=== PATIENT | female | born 1965 | race Caucasian/White ===

== ENCOUNTER 2017-09-28 16:40 | Observation (INO) | payer OTHER ==
[~2017-09-28] VITALS: Ht 162.6 cm; Wt 78.9 kg
[~2017-09-28 16:40] MED LIST: METFORMIN; SAXAGLIPTIN; Z LABETALOL HCL; Z.0.ACIPHEX20 MG; Z.0.AMARYL2 MG; Z.0.AMLODIPINE BESYL PO; Z.0.EFFEXOR XR150 MG; Z.1.MECLIZINE HCL25; Z.2.METFORMIN HCL500 PO
[2017-09-28] MEDS ORDERED: FENOFIBRATE145 MG PO (17:01)
[2017-09-28] MEDS ORDERED: CRESTOR10 MG PO (17:01)
[2017-09-28] MEDS ORDERED: LISINOPRIL10 MG PO (17:01)
[2017-09-28] MEDS ORDERED: CYMBALTA30 MG PO (17:01)
[2017-09-28] MEDS ORDERED: ABILIFY5 MG PO (17:01)
[2017-09-28] MEDS ORDERED: TRULICITY SQ (17:01)
[2017-09-28] MEDS ORDERED: BUPROPION XL300 MG PO (17:01)
[2017-09-28 18:40] LABS: BASOPHILS % 0.5 % (0.0-1.0); EOSINOPHILS # (AUTO) 0.1 (0.0-0.4); EOSINOPHILS % 0.9 % (0.0-6.0); HEMATOCRIT 41.3 % (34.2-44.1); HEMOGLOBIN 13.8 g/dL (12.0-16.0); LYMPHOCYTES # (AUTO) 1.6 (1.0-3.2); LYMPHOCYTES % 19.9 % (18.0-39.1); MEAN CORPUSCULAR HEMOGLOBIN 26.8 pg (28-32); MEAN CORPUSCULAR HGB CONC 33.4 g/dL (31-35); MEAN CORPUSCULAR VOLUME 80.2 fL (81-99); MONOCYTES # (AUTO) 0.4 (0.2-0.8); MONOCYTES % 5.2 % (4.4-11.3); NEUTROPHILS # (AUTO) 5.9 (2.1-6.9); NEUTROPHILS % 73.3 % (38.7-80.0); PLATELET COUNT 322 x10e3/uL (140-360); RED BLOOD COUNT 5.15 x10e6/uL (3.6-5.1); RED CELL DISTRIBUTION WIDTH 13.1 % (11.7-14.4)
[2017-09-28 18:52] LABS: ALANINE AMINOTRANSFERASE 13 IU/L (0-55); ALBUMIN 3.7 g/dL (3.5-5.0); ALBUMIN/GLOBULIN RATIO 1.1 (0.8-2.0); ALKALINE PHOSPHATASE 45 IU/L (40-150); ANION GAP 11.5 mmol/L (8-16); BLOOD UREA NITROGEN 18 mg/dL (7-26); BUN/CREATININE RATIO 24 (6-25); CARBON DIOXIDE 25 mmol/L (22-29); CHLORIDE 108 mmol/L (98-107); CREATINE KINASE 63 IU/L (29-168); CREATININE, SERUM 0.76 mg/dL (0.57-1.11); EST GLOMERULAR FILTRATION RATE > 60 ML/MIN (60-); GLUCOSE 112 mg/dL (74-118); POTASSIUM 3.5 mmol/L (3.5-5.1); SODIUM 141 mmol/L (136-145)
--- NOTE | 2017-09-28 19:41 | Diagnostic Imaging Report ---
Exam: Head CT without contrast History: Dizziness, hypertension Comparison studies: Head CT 09/26/2010. Brain MRI of 09/27/2010 is unavailable on the PACS at the time of dictation. Technique: Axial images were obtained from the skull base to the vertex. Coronal and sagittal images reconstructed from the axial data. Intravenous contrast: None Findings: Scalp: No abnormalities. Bones: No fractures, blastic or lytic lesions. Brain sulci: Appropriate for age. Ventricles: Normal in size and configuration. No hydrocephalus. Extra-axial spaces: No masses, no fluid collection. Parenchyma: No mass, acute hemorrhage or acute or chronic cortical vascular insults. A few subtle hypodensities in the supratentorial white matter are nonspecific but most compatible with chronic small vessel ischemic changes. Sellar/suprasellar region: No abnormalities. Craniocervical junction: Patent foramen magnum. No Chiari one malformation. Incidental findings: Atherosclerotic calcifications in the carotid siphons.. IMPRESSION: 1. No acute intracranial abnormalities. 2. Mild chronic microvascular ischemic changes. 3. No significant changes from the previous head CT of 09/26/2010. Signed by: Dr. Farhan Mcdermott M.D. on 09/28/2017 7:37 PM
[2017-09-28] MEDS ORDERED: SODIUM CHLORIDE 0.9% 1000ML 1,000 ML IV STA (19:44)
[2017-09-28] MEDS ORDERED: KETOROLAC TROMETHAMINE 30 MG/ML VIAL IV ONE (19:44)
[2017-09-28] MEDS ORDERED: MECLIZINE HCL 12.5 MG TAB PO ONE (19:45)
[2017-09-28] MEDS ORDERED: BENZOCAINE/TETRACAINE/BUTAMBEN AERO SPRAY 56 GM CAN TOP ONE (20:30)
[2017-09-28] MEDS ORDERED: MECLIZINE HCL 12.5 MG TAB PO PRN (21:00)
[2017-09-28] MEDS ORDERED: ONDANSETRON HCL 4 MG ORAL DISINTEGRATING TAB PO PRN (21:00)
[2017-09-28] MEDS ORDERED: DEXTROSE 50% SYRINGE 50 ML IV PRN (21:00)
[2017-09-28] MEDS ORDERED: ACETAMINOPHEN 325 MG TAB PO PRN (21:00)
[2017-09-28] MEDS ORDERED: ASPIRIN 325 MG TAB EC PO ONE (21:00)
--- OUTSIDE RECORDS SUMMARY | 2017-09-28 21:01 | XMS REPORT ---
Author Author [facility] Address Unknown Phone Unavailable Care Team Providers Care Branch Rental Manager Name Role Phone DENI RUDD Unavailable Unavailable Problems This patient has no known problems. Allergies, Adverse Reactions, Alerts This patient has no known allergies or adverse reactions. Medications This patient has no known medications. Results Test Description Test Time Test Comments Text Results Atomic Results Result Comments CT BRAIN WO [place] [address] Patient Name: MARLEE MENENDEZ MR #: [id number] : 1965 Age/Sex: 52/F Req # : [id number] Adm Physician: Ordered by: DENI RUDD MD Report #: [id number] Location: ER Room/Bed: Procedure: [id number] CT/CT BRAIN WO Exam Date: Exam Time: REPORT STATUS: Signed Exam: Head CT without contrast History: Dizziness, hypertension Comparison studies: Head CT 09/26/2010. Brain MRI of 09/27/2010 is unavailable on the PACS at the time of dictation. Technique: Axial images were obtained from the skull base to the vertex. Coronal and sagittal images reconstructed from the axial data. Intravenous contrast: None Findings: Scalp: No abnormalities. Bones: No fractures, blastic or lytic lesions. Brain sulci: Appropriate for age. Ventricles: Normal in size and configuration. No hydrocephalus. Extra-axial spaces: No masses, no fluid collection. Parenchyma: No mass, acute hemorrhage or acute or chronic cortical vascular insults. A few subtle hypodensities in the supratentorial white matter are nonspecific but most compatible with chronic small vessel ischemic changes. Sellar/suprasellar region: No abnormalities. Craniocervical junction: Patent foramen magnum. No Chiari one malformation. Incidental findings: Atherosclerotic calcifications in the carotid siphons.. IMPRESSION: 1. No acute intracranial abnormalities. 2. Mild chronic microvascular ischemic changes. 3. No significant changes from the previous head CT of 09/26/2010. Signed by: Dr. Alex Mcdermott M.D. on 09/28 7:37 PM Dictated By: ALEX MCDERMOTT MD 36 Transcribed By: MILDRED on 09/28/171936 COPY TO: DENI RUDD MD
[2017-09-28] MEDS: INSULIN REGULAR, HUMAN 100 UNIT/1 ML 3ML VIAL SQ SCH (21:17)
[2017-09-28 23:19] LABS: INR 1.05; PARTIAL THROMBOPLASTIN TIME 28.6 seconds (23.8-35.5); PROTHROMBIN TIME 12.9 seconds (11.9-14.5)
[2017-09-28 23:29] VITALS: BP 142/76
[2017-09-28 23:53] VITALS: BP 142/76
[2017-09-29] VITALS (10 sets, daily range): BP systolic 118–142; BP diastolic 67–88
[2017-09-29 06:18] LABS: BASOPHILS % 0.3 % (0.0-1.0); EOSINOPHILS # (AUTO) 0.1 (0.0-0.4); EOSINOPHILS % 1.6 % (0.0-6.0); HEMATOCRIT 38.6 % (34.2-44.1); HEMOGLOBIN 12.8 g/dL (12.0-16.0); LYMPHOCYTES # (AUTO) 2.6 (1.0-3.2); LYMPHOCYTES % 35.9 % (18.0-39.1); MEAN CORPUSCULAR HEMOGLOBIN 26.5 pg (28-32); MEAN CORPUSCULAR HGB CONC 33.2 g/dL (31-35); MEAN CORPUSCULAR VOLUME 79.9 fL (81-99); MONOCYTES # (AUTO) 0.5 (0.2-0.8); NEUTROPHILS % 54.9 % (38.7-80.0); PLATELET COUNT 269 x10e3/uL (140-360); RED BLOOD COUNT 4.83 x10e6/uL (3.6-5.1); RED CELL DISTRIBUTION WIDTH 13.2 % (11.7-14.4)
[2017-09-29 06:36] LABS: CREATINE KINASE 58 IU/L (29-168)
[2017-09-29 07:04] LABS: ALANINE AMINOTRANSFERASE 11 IU/L (0-55); ALBUMIN 3.2 g/dL (3.5-5.0); ALBUMIN/GLOBULIN RATIO 1.1 (0.8-2.0); ALKALINE PHOSPHATASE 40 IU/L (40-150); ANION GAP 10.4 mmol/L (8-16); BLOOD UREA NITROGEN 13 mg/dL (7-26); BUN/CREATININE RATIO 16 (6-25); CALCIUM 8.8 mg/dL (8.4-10.2); CARBON DIOXIDE 27 mmol/L (22-29); CHLORIDE 108 mmol/L (98-107); CHOL/HDL RATIO 3.1 (3.0-3.6); CHOLESTEROL 152 MD/DL (0-199); CREATININE, SERUM 0.79 mg/dL (0.57-1.11); EST GLOMERULAR FILTRATION RATE > 60 ML/MIN (60-); GLUCOSE 82 mg/dL (74-118); HDL CHOLESTEROL 49 MG/DL (40-60); LDL CHOLESTEROL 79 MG/DL (60-130); POTASSIUM 3.4 mmol/L (3.5-5.1); SODIUM 142 mmol/L (136-145); TRIGLYCERIDES 120 MG/DL (0-149)
[2017-09-29] MEDS: INSULIN REGULAR, HUMAN 100 UNIT/1 ML 3ML VIAL SQ SCH ×4 (07:30→21:00)
[2017-09-29] MEDS: ASPIRIN 81 MG ENTERIC COATED PO SCH (08:48)
--- NOTE | 2017-09-29 12:29 | Diagnostic Imaging Report ---
PROCEDURE:HIP LEFT 2-3 VW (+/- PELVIS) COMPARISON:None. INDICATIONS:LEFT HIP PAIN FINDINGS: Normal mineralization. No acute displaced fracture or dislocation. Mild degenerative changes of both hips with mild subchondral sclerosis and osteophytosis. Soft tissues are unremarkable. CONCLUSION: No acute osseous abnormalities. Dictated by: Thang Stevens M.D. on 09/29/2017 at 12:30 Electronically approved by: Thang Stevens M.D. on 09/29/2017 at 12:30
[2017-09-29] MEDS: MORPHINE SULFATE 2 MG/ML SYR IV PRN ×2 (13:13→18:28)
[2017-09-29] MEDS ORDERED: PROMETHAZINE 12.5MG/ NACL 0.9% 12.5 MG/50 ML BAG IV ONE (15:15)
[2017-09-29] MEDS ORDERED: METHYLPREDNISOLONE SOD SUCC 125 MG/2ML VIAL IV ONE (15:15)
[2017-09-29] MEDS ORDERED: VALPROATE SOD INJ 500 MG in SODIUM CHLORIDE 0.9% 100 ML 100 ML IV ONE (15:15)
[2017-09-29 16:10] LABS: CREATINE KINASE 46 IU/L (29-168)
--- NOTE | 2017-09-29 17:16 | Consultation ---
NEUROLOGY CONSULTATION DATE OF CONSULTATION: September 29, 2017 HISTORY OF PRESENT ILLNESS: Ms. De La Fuente is a 52-year-old right hand dominant woman with past medical history significant for hypertension, hyperlipidemia, diabetes mellitus type 2, and prior transient ischemic attack admitted to [facility] on September 28, 2017 with headache and dizziness. Ms. De La Fuente endorses dizziness which she describes as a mixture of lightheadedness and spinning. The dizziness occurs with bending forward at the waist, lying down in bed, and sitting up from a supine position. The dizziness does not occur with turning her head or her body either left or right. When present, the dizziness lasts for a few seconds, then spontaneously resolves. There is no blurred vision associated with the dizziness. Ms. De La Fuente does endorse some nausea without vomiting associated with the dizziness. Ms. De La Fuente reports the dizziness improves with "being very still." The dizziness has been present for approximately 2 months. Ms. De La Fuente reports the intensity of the symptoms is stable, but the frequency is increasing. The patient does have a history of intermittent vertigo, with the most recent bout occurring approximately 1 year ago. In the past, Ms. De La Fuente has been treated with oral meclizine. She has never received vestibular exercises through physical therapy. Ms. De La Fuente endorses a headache which she describes as follows: The pain is unilateral over the right side of the head and does not radiate. The pain is described as pressure and is rated a 5-6/10. Associated with the headaches are: Photophobia. Ms. De La Fuente does not report phonophobia. She is uncertain if the dizziness and associated symptoms occur with or without the headaches. The headaches have occurred intermittently for the past 2 months. When present, the headaches last for several hours. Ms. De La Fuente reports the headaches are occurring multiple days per week. The patient does have a prior history of migraines. In the past, her migraines have occurred sporadically. Her most recent migraine occurred 1 year ago. Ms. De La Fuente has been prescribed medication to treat her migraines in the past. However, she cannot recall the name of this medication. As stated above, Ms. De La Fuente presented to the emergency center at [facility] on September 28, 2017 on the advice of her primary care physician, Dr. Barker. While in the emergency center, the patient's neurological examination was reportedly nonfocal. Ms. De La Fuente underwent a CT of the brain without contrast while in the emergency center. There was no evidence of recent large territorial ischemia or hemorrhage on the CT of the brain without contrast. Ms. De La Fuente was admitted to [facility] as an inpatient for further evaluation and treatment of her symptoms. REVIEW OF SYSTEMS: Nausea, left hip pain, mid back pain, dizziness, headache, and photophobia. Otherwise the 12 point review of systems is negative. PAST MEDICAL HISTORY: Hypertension, hyperlipidemia, diabetes mellitus type 2, depression, prior history of migraines, prior transient ischemic attack, kidney cancer, currently in remission, polycystic ovarian syndrome. PAST SURGICAL HISTORY: Gastric sleeve, right partial nephrectomy, cholecystectomy, removal of bone spurs on the right foot, D and C. PAST HOSPITALIZATIONS: Surgeries and procedures listed, chest pain, transient ischemic attack. FAMILY HISTORY: Hypertension, diabetes mellitus, coronary artery disease, and depression. SOCIAL HISTORY: Ms. De La Fuente is a . She is engaged to be . The patient graduated high school. She works as a chemical handler. Ms. De La Fuente does endorse tobacco use. She has smoked approximately one pack per day for the past 35 years. The patient does not report current or prior alcohol or recreational drug use. HOME MEDICATIONS: Amlodipine 10 mg by mouth daily, Abilify 10 mg by mouth daily, bupropion XL 300 mg by mouth daily, Cymbalta 60 mg by mouth daily, fenofibrate 135 mg by mouth daily, lisinopril 40 mg by mouth daily, metformin 500 mg by mouth twice daily, Crestor 5 mg by mouth daily, Trulicity. ALLERGIES: No known drug allergies. No known food allergies. No known allergies to latex. No known allergies to iodine or other contrast materials. PHYSICAL EXAMINATION VITAL SIGNS: Height 64 inches, weight 174 pounds, BMI 29.9 kg per meter squared. Blood pressure 127/70 mmHg, pulse 98 beats per minute, respiratory rate 16 breaths per minute. GENERAL: The patient is awake and alert, does not appear distressed. Overweight. HEENT: Normocephalic, atraumatic. Pupils are equal, round and reactive to light. Moist mucous membranes. NECK: Supple. No appreciable thyromegaly. No appreciable carotid bruits. CARDIOVASCULAR: S1, S2, regular rate and rhythm. No murmurs, rubs or gallops. RESPIRATORY: Clear to auscultation bilaterally. No wheezes, rhonchi, or rales. EXTREMITIES: The skin is warm and dry. No clubbing, cyanosis, or edema. The posterior tibial and dorsalis pedis pulses are 2+ and symmetric. SKIN: No rashes or lesions. NEUROLOGIC: Memory/Attention: The patient is awake and alert, oriented to person, place, time and situation. CRANIAL NERVES: Cranial nerve 1-not tested. Cranial nerve 2, 3, 4, and 6--pupils are equal and round, react briskly to light (from 6 mm to 3 mm), extraocular movements intact. No nystagmus. Cranial nerve 5-sensation to light touch and pinprick is intact in the bilateral V1 through V3 distributions. Strength of the temporalis and mastoid muscles is within normal limits. Cranial nerve 7-the face is symmetric as are all facial movements. Strength is within normal limits. Cranial nerve 8-hearing is intact to finger rub bilaterally. Cranial nerve 9, 10-the soft palate elevates equally and symmetrically. Cranial nerve 11-normal strength of the bilateral sternocleidomastoid and trapezius muscles. Cranial nerve 12-the tongue protrudes midline and moves symmetrically from side to side. STRENGTH: Bulk is normal and strength is 5/5 in the bilateral deltoids, biceps triceps, wrist flexors and extensors, finger flexors and extensors, intrinsic hand muscles, hip flexors, knee flexors and extensors, ankle dorsiflexion and plantarflexion, and intrinsic foot muscles. Tone is normal. DTRs: Deep tendon reflexes are 2+ and symmetric at the triceps, biceps, brachioradialis, patellas, and Achilles. Plantar responses are flexor bilaterally. Absent clonus. SENSATION: Sensation is intact to light touch and pinprick in both arms and both legs. CEREBELLAR: Yenzef-ctks-zchoby and heel-latif movements are intact without dysmetria or other impairment. rapid alternating movements are intact. GAIT: Deferred. SPEECH: Spontaneous speech is normal without appreciable dysarthria or aphasia. repetition is intact. INVOLUNTARY MOVEMENTS: None. PRONATOR DRIFT: None. LABORATORY DATA: Sodium 142, potassium 3.4, chloride 108, carbon dioxide 27, anion gap 10.4, BUN 13, creatinine 0.79. Estimated GFR greater than 60. BUN to creatinine ratio 16. Glucose 82. Calcium 8.8. Total bilirubin 0.3, AST 13, ALT 11, alkaline phosphatase 40. Total protein 6.1, albumin 3.2, globulin 2.9. Albumin to globulin ratio 1.1. Creatine kinase 63, 58. CK-MB 1.40, 1.30. Troponin I less than 0.001. Total cholesterol 152, triglycerides 120, LDL 79, HDL 49. The CBC with differential and platelets reveals a white blood cell count of 7.32 with normal differential. The hemoglobin and hematocrit are 12.8 and 38.6, respectively. The platelet count is 269. PT 12.9, INR 1.05, PTT 28.6. DIAGNOSTIC STUDIES: EKG 09/28/2017: Normal sinus rhythm at [address] of the brain without contrast 09/28/2017: On my review, there is no evidence of recent or remote large territorial ischemia, hemorrhage, mass, or mass affect. There are changes compatible with mild chronic small vessel ischemic disease. According to the note from the radiologist, there has been no significant change from the patient's previous CT of the brain dated September 26, 2010. Hip x-ray 09/29/2017: No acute osseous abnormalities. ASSESSMENT AND PLAN: Ms. De La Fuente is a 52-year-old right hand dominant woman with past medical history significant for hypertension, hyperlipidemia, diabetes mellitus type 2, a prior transient ischemic attack, and tobacco use presenting to [facility] with a 2-month history of headache and dizziness. The patient's neurological examination is nonfocal. Her laboratory data and other diagnostic studies have been reviewed and are documented above. The diagnosis which best explains all of the patient's symptoms is migraine without aura with status migrainosus. Other possible diagnoses which would account for all of the patient's symptoms are migraine without aura and benign paroxysmal positional vertigo. A diagnosis of posterior circulation stroke is possible, though less likely. According to Ms. De La Fuente, the dizziness described in the history of present illness came on gradually approximately 2 months ago. When present, the dizziness is very brief, lasting only a few seconds at a time. The dizziness is exacerbated by moving forwards or backwards. These characteristics are atypical of a posterior circulation stroke. On neurological examination, there is no appreciable truncal or appendicular ataxia which would be expected in a posterior circulation stroke. RECOMMENDATIONS: Are as follows 1. MRI of the brain without contrast. This study is being ordered due to patient's presentation with new or worsening headache after the age of 51 years. This study will reveal a posterior circulation stroke, if present, as well. 2. Promethazine 12.5 mg intravenously once. 3. Methylprednisolone 125 mg intravenously once. 4. Valproate 500 mg intravenously once. 5. The above medications, when given in combination, are an effective treatment for status migrainosus. The above medications may be given again in 6 hours if needed. If Ms. De La Fuente's symptoms are due to migraine without aura with status migrainosus, as is suspected, her symptoms should significantly improve or resolve with the above medications. 6. Defer treatment of the remaining medical comorbidities to the primary and other services. Thank you for this consultation. I will continue to follow this patient while she remains in the hospital. Time spent: 50 minutes. Job#: [id number] JERED MCCONNELL
[2017-09-29] MEDS: METFORMIN HCL 500 MG TAB PO SCH (17:24)
[2017-09-29] MEDS ORDERED: HYDROCODONE/APAP 5MG-325MG TAB PO PRN (18:45)
[2017-09-29] MEDS ORDERED: SIMVASTATIN 40 MG TAB PO SCH (21:00)
[2017-09-29] MEDS: SIMVASTATIN 20 MG TAB PO SCH (21:11)
[2017-09-29] MEDS ORDERED: SODIUM CHLORIDE 0.9% 250ML 250 ML ONE (21:22)
[2017-09-29] MEDS ORDERED: VALPROATE SOD INJ 500 MG in SODIUM CHLORIDE 0.9% 100 ML 100 ML IV PRN (22:00)
[2017-09-30] VITALS (8 sets, daily range): BP systolic 119–165; BP diastolic 64–84
[2017-09-30] MEDS: INSULIN REGULAR, HUMAN 100 UNIT/1 ML 3ML VIAL SQ SCH ×4 (07:30→21:00)
[2017-09-30] MEDS ORDERED: LISINOPRIL 10 MG TAB PO SCH (09:00)
[2017-09-30] MEDS ORDERED: NON-FORMULARY MEDICATION (Bupropion Hcl (Bupropion Xl) 300 MG) PO SCH (09:00)
[2017-09-30] MEDS ORDERED: AMLODIPINE BESYLATE 5 MG TAB PO SCH (09:00)
[2017-09-30] MEDS ORDERED: NON-FORMULARY MEDICATION (Aripiprazole (Abilify) 10 MG) PO SCH (09:00)
[2017-09-30] MEDS: METFORMIN HCL 500 MG TAB PO SCH ×2 (09:57→16:26)
[2017-09-30] MEDS: ARIPIPRAZOLE 5 MG TABLET PO SCH (09:57)
[2017-09-30] MEDS: DULOXETINE HCL 30 MG DELAYED RELEASE PO SCH (09:57)
[2017-09-30] MEDS: ASPIRIN 81 MG ENTERIC COATED PO SCH (09:57)
[2017-09-30] MEDS: BUPROPION HCL 150 MG TABCR PO SCH (09:58)
[2017-09-30] MEDS: AMLODIPINE BESYLATE 10 MG TAB PO SCH (09:58)
[2017-09-30] MEDS: LISINOPRIL 20 MG TAB PO SCH (09:58)
[2017-09-30] MEDS: FENOFIBRATE 145 MG TAB PO SCH (09:58)
[2017-09-30] MEDS ORDERED: KETOROLAC TROMETHAMINE 30 MG/ML VIAL IV ONE (12:45)
[2017-09-30] MEDS ORDERED: POTASSIUM CHLORIDE 10 MEQ TABCR PO ONE (13:00)
--- NOTE | 2017-09-30 13:17 | Diagnostic Imaging Report ---
History: 52-year-old female with headaches Comparison studies: None Technique: Sagittal T2; axial DWI, FLAIR, MPGR, T1, Coronal FLAIR. Intravenous contrast: None Findings: Scalp: Normal in signal . No masses . Bone marrow: Normal in signal intensity. Brain sulci: Appropriate for age. Ventricles: Normal in size . No hydrocephalus . Parenchyma: A small number of scattered bilateral supratentorial FLAIR hyperintensities are present. No masses, hemorrhage, acute or chronic vascular insults. Suprasellar region: No abnormalities. Craniocervical junction: Patent foramen magnum. No Chiari malformation . Vessels: Normal flow-voids in the arteries and sinuses. IMPRESSION: 1. No intracranial mass, hemorrhage, or acute infarct. 2. Mild nonspecific FLAIR hyperintensities in the supratentorial white matter, which may represent chronic small vessel ischemic changes. Signed by: DR Jack Bejarano M.D. on 09/30/2017 4:29 PM
[2017-09-30] MEDS ORDERED: DIHYDROERGOTAMINE MESYLATE 1 MG/ML AMP IV ONE (14:00)
[2017-09-30] MEDS: SIMVASTATIN 20 MG TAB PO SCH (20:31)
[2017-10-01] VITALS: BP 122/67
[2017-10-01 04:00] VITALS: BP 130/72
[2017-10-01] MEDS: INSULIN REGULAR, HUMAN 100 UNIT/1 ML 3ML VIAL SQ SCH (07:30)
[2017-10-01] MEDS: FENOFIBRATE 145 MG TAB PO SCH (08:14)
[2017-10-01] MEDS: LISINOPRIL 20 MG TAB PO SCH (08:14)
[2017-10-01] MEDS: ARIPIPRAZOLE 5 MG TABLET PO SCH (08:14)
[2017-10-01] MEDS: AMLODIPINE BESYLATE 10 MG TAB PO SCH (08:14)
[2017-10-01] MEDS: DULOXETINE HCL 30 MG DELAYED RELEASE PO SCH (08:14)
[2017-10-01] MEDS: ASPIRIN 81 MG ENTERIC COATED PO SCH (08:14)
[2017-10-01] MEDS: METFORMIN HCL 500 MG TAB PO SCH (08:14)
[2017-10-01] MEDS: BUPROPION HCL 150 MG TABCR PO SCH (08:14)
[2017-10-01 08:21] VITALS: BP 155/85
[2017-10-01 08:35] VITALS: BP 155/85
[2017-10-01] MEDS ORDERED: MECLIZINE HCL12.5 MG PO (11:31)
== END 2017-10-01 11:52 | disposition home or self-care (01) ==
LOC: ER 16:40 → ERHOLD 20:59 → MED/SURG 22:49
DX: G43.001 Migraine without aura, not intractable, with status migrainosus (principal); R53.1 Weakness; H81.10 Benign paroxysmal vertigo, unspecified ear; E78.5 Hyperlipidemia, unspecified; Z86.73 Personal history of transient ischemic attack (TIA), and cerebral infarction without residual deficits; I10 Essential (primary) hypertension; Z72.0 Tobacco use
CPT/HCPCS: 36415 ×4; 70450; 70551; 73502; 80053 ×2; 80061; 82550 ×2; 82553 ×2; 82948 ×4; 84484 ×2; 85025 ×2; 85610; 85730; 93005; 99284; G0378 ×4; J1110; J1885 ×2; J2270; J2550; J2930; J7030; J7050

== ENCOUNTER 2017-10-18 14:15 | Emergency (ER) | payer OTHER ==
[~2017-10-18] VITALS: Ht 162.6 cm; Wt 78.9 kg
[~2017-10-18 14:15] MED LIST changes: +ABILIFY5 MG PO; +BUPROPION XL300 MG PO; +CRESTOR10 MG PO; +CYMBALTA30 MG PO; +FENOFIBRATE145 MG PO; +LISINOPRIL10 MG PO; +MECLIZINE HCL12.5 MG PO; +TRULICITY SQ
--- OUTSIDE RECORDS SUMMARY | 2017-10-18 14:19 | XMS REPORT | Continuity of Care Document ---
Author Author [facility] Organization [facility] Address [address] [place] [address] Phone Unavailable Care Team Providers Care Tree Chipper Name Role Phone LAUREEN MAYERS DO PCP Insurance Providers Guarantor Marlee De La Fuente Address [address] [place] [address] Email PT DECLINED Payer [employer] Pos Policy Number [id number] Subscriber's Name Marlee De La Fuente Relationship 18 Self / Same As Patient Group Number [id number] Group Name [employer] Effective Date 09 Advance Directives Directive Response Recorded Date/Time Does the patient have an advance directive? No 09/28/17 11:57pm If yes, is advance directive on file with [facility]? No 09/26/10 6:30pm If not on file with [facility] will patient provide a copy? No 09/26/10 6:30pm Do you have a Directive to Physician? No 09/28/17 7:06pm Do you have a Medical Power of Vice President Of Sales? No 09/28/17 7:06pm Do you have an out of hospital Do Not Resuscitate Order? No 09/28/17 7:06pm Do you have any special needs we should be aware of? No 09/28/17 7:06pm Do you have a support person here with you today? Yes 09/28/17 7:06pm Did patient receive Notice of Privacy Practices? Yes 09/28/17 7:06pm Did patient receive patient rights and responsibilities? Yes 09/28/17 7:06pm Problems Medical Problem Onset Date Status Dizziness Unknown Headache Unknown Medications Current Home Medications Medication Dose Units Route Directions Days Qty Instructions Start Date Amlodipine Besylate 5 Mg Tablet 10 Mg Oral Daily Aripiprazole (Abilify) 5 Mg Tablet 10 Mg Oral Daily 30 Tab Bupropion Hcl (Bupropion Xl) 300 Mg Tab.er.24h 300 Mg Oral Daily Duloxetine Hcl (Cymbalta) 30 Mg Capsule.dr 60 Mg Oral Daily 30 Cap Fenofibrate Nanocrystallized (Fenofibrate) 145 Mg Tablet 135 Mg Oral Daily Lisinopril 10 Mg Tablet 40 Mg Oral Daily 30 Tab Meclizine Hcl 12.5 Mg Tablet 25 Mg Oral Daily Metformin Hcl 500 Mg Tablet 500 Mg Oral Twice A Day Rosuvastatin Calcium (Crestor) 10 Mg Tab 5 Mg Oral Daily THERAPEUTICALLY SUBSTITUTED WITH SIMVASTATIN 40MG Trulicity Sub-Q Weekly Past Home Medications Medication Directions Ordered Status Glimepiride (Amaryl) 2 Mg Tablet, Discontinued Labetalol Hcl 300 Mg Tablet, Discontinued Meclizine Hcl 25 Mg Tablet, Discontinued Rabeprazole Sodium (Aciphex) 20 Mg Tablet.dr, Discontinued Saxagliptin Hcl/Metformin Hcl (Kombiglyze Xr 5-500 Mg Tablet) 1 Each Tbmp.24hr , Discontinued Venlafaxine Hcl (Effexor Xr) 150 Mg Cap.sr.24h, Discontinued Social History Social History Problem Response Recorded Date/Time Onset Date Status Hx Psychiatric Problems Yes 09/28/2017 11:57pm Not Applicable Not Applicable Hx Eating Disorder No 09/28/2017 11:57pm Not Applicable Not Applicable Hx Substance Use Disorder No 09/28/2017 11:57pm Not Applicable Not Applicable Hx Depression Yes 09/28/2017 11:57pm Not Applicable Not Applicable Hx Alcohol Use No 09/28/2017 11:57pm Not Applicable Not Applicable Hx Substance Use Treatment No 09/28/2017 11:57pm Not Applicable Not Applicable Hx Physical Abuse No 09/28/2017 11:57pm Not Applicable Not Applicable Smoking Status Start Date Stop Date Current every day smoker Hospital Discharge Instructions No hospital discharge instruction information available. Plan of Care Discharge Date 10/01/17 11:52am Disposition HOME, SELF-CARE Instructions/Education Provided Dizziness Headache Hypertension Headache - Migraine (Adult) Vertigo Prescriptions See Medication Section Referrals MADIHA GROVER M.D. (Neurology) Order Date: 1-2 Weeks Entered Date: 10/01/2017 11:29am Address: [address] [place] [address] [address] [place] [address] CELL# Additional Instructions/Education ACTIVITY TOLERATED F/U WITH PCP IN 1-2 WEEKS MONITOR BLOOD PRESSURE TAKE MECLIZINE PRESCRIBED FOR DIZZINESS. DO NOT DRIVE WHEN DIZZY OR ON MECLIZINE. CAN MAKE DROWSY Functional Status Query Response Date Recorded Assistive Devices None September 29, 2017 12:01am Ambulation Ability Independent September 29, 2017 12:01am Toileting Ability Independent September 30, 2017 6:13pm Allergies, Adverse Reactions, Alerts No known allergies. Immunizations No immunization information available. Vital Signs Acute Vital Signs Vital Response Date/Time Temperature (Fahrenheit) 97.4 degrees F (97.6 - 99.5) 10/01/2017 8:35am Pulse Pulse Rate (adult) 70 bpm (60 - 90) 10/01/2017 8:35am Respiratory Rate 18 bpm (12 - 24) 10/01/2017 8:35am Blood Pressure 155/85 mm Hg 10/01/2017 8:35am Height 5 ft 4 in 09/28/2017 11:30pm Weight 174 lb 09/29/2017 8:16am Body Mass Index 29.9 kg/m^2 09/29/2017 8:16am Results Laboratory Results Test Name Result Units Flags Reference Collection Date/Time Result Date/ Time Comments White Blood Count 7.32 x10e3/uL 4.8-10.8 09/29/2017 6:00am 09/29/2017 6 :24am Red Blood Count 4.83 x10e6/uL 3.6-5.1 09/29/2017 6:00am 09/29/2017 6: 24am Hemoglobin 12.8 g/dL 12.0-16.0 09/29/2017 6:00am 09/29/2017 6:24am Hematocrit 38.6 % 34.2-44.1 09/29/2017 6:00am 09/29/2017 6:24am Mean Corpuscular Volume 79.9 fL L 81-99 09/29/2017 6:00am 09/29/2017 6: 24am Mean Corpuscular Hemoglobin 26.5 pg L 28-32 09/29/2017 6:00am 2017 6:24am Mean Corpuscular Hemoglobin Concent 33.2 g/dL 31-35 09/29/2017 6:00am 09/29/2017 6:24am Red Cell Distribution Width 13.2 % 11.7-14.4 09/29/2017 6:00am 2017 6:24am Platelet Count 269 x10e3/uL 140-360 09/29/2017 6:00am 09/29/2017 6: 24am Neutrophils (%) (Auto) 54.9 % 38.7-80.0 09/29/2017 6:00am 09/29/2017 6: 24am Lymphocytes (%) (Auto) 35.9 % 18.0-39.1 09/29/2017 6:00am 09/29/2017 6: 24am Monocytes (%) (Auto) 7.0 % 4.4-11.3 09/29/2017 6:00am 09/29/2017 6: 24am Eosinophils (%) (Auto) 1.6 % 0.0-6.0 09/29/2017 6:00am 09/29/2017 6: 24am Basophils (%) (Auto) 0.3 % 0.0-1.0 09/29/2017 6:00am 09/29/2017 6:24am IM GRANULOCYTES % 0.3 % 0.0-1.0 09/29/2017 6:00am 09/29/2017 6:24am Neutrophils # (Auto) 4.0 2.1-6.9 09/29/2017 6:00am 09/29/2017 6:24am Lymphocytes # (Auto) 2.6 1.0-3.2 09/29/2017 6:00am 09/29/2017 6:24am Monocytes # (Auto) 0.5 0.2-0.8 09/29/2017 6:00am 09/29/2017 6:24am Eosinophils # (Auto) 0.1 0.0-0.4 09/29/2017 6:00am 09/29/2017 6:24am Basophils # (Auto) 0.0 0.0-0.1 09/29/2017 6:00am 09/29/2017 6:24am Absolute Immature Granulocyte (auto 0.02 x10e3/uL 0-0.1 09/29/2017 6: 00am 09/29/2017 6:24am Prothrombin Time 12.9 seconds 11.9-14.5 09/28/2017 5:18pm 09/28/2017 11 :21pm Prothromb Time International Ratio 1.05 09/28/2017 5:18pm 2017 11:21pm Oral Anticoagulant Therapy INR Values: 1. Low Intensity Therapy 1.5 - 2.0 2. Moderate Intensity Therapy 2.0 - 3.0 3. High Intensity Therapy(1) 2.5 - 3.5 4. High Intensity Therapy(2) 3.0 - 4.0 5. Panic Value INR > 5.0 Activated Partial Thromboplast Time 28.6 seconds 23.8-35.5 09/28/2017 5: 18pm 09/28/2017 11:21pm Sodium Level 142 mmol/L 136-145 09/29/2017 6:00am 09/29/2017 7:09am Potassium Level 3.4 mmol/L L 3.5-5.1 09/29/2017 6:00am 09/29/2017 7: 09am Chloride Level 108 mmol/L H 98-107 09/29/2017 6:00am 09/29/2017 7:09am Carbon Dioxide Level 27 mmol/L 22-29 09/29/2017 6:00am 09/29/2017 7: 09am Anion Gap 10.4 mmol/L 8-16 09/29/2017 6:00am 09/29/2017 7:09am Blood Urea Nitrogen 13 mg/dL 7-09/29/2017 6:00am 09/29/2017 7:09am Creatinine 0.79 mg/dL 0.57-1.11 09/29/2017 6:00am 09/29/2017 7:09am BUN/Creatinine Ratio 16 6-09/29/2017 6:00am 09/29/2017 7:09am Estimat Glomerular Filtration Rate > 60 ML/MIN 60- 09/29/2017 6:00am 7:09am Ranges were taken from the National Kidney Disease Education Program and the National Kidney Foundation literature. Reference ranges: 60 or greater: Normal 16-59 (for 3 consecutive months): Chronic kidney disease 15 or less: Kidney failure Glucose Level 82 mg/dL 74-118 09/29/2017 6:00am 09/29/2017 7:09am Calcium Level 8.8 mg/dL 8.4-10.2 09/29/2017 6:00am 09/29/2017 7:09am Bedside Glucose 97 mg/dL 70-120 10/01/2017 7:42am 10/01/2017 8:22am Meter ID: [id number] Total Bilirubin 0.3 mg/dL 0.2-1.2 09/29/2017 6:00am 09/29/2017 7:09am Aspartate Amino Transf (AST/SGOT) 13 IU/L 5-34 09/29/2017 6:00am 2017 7:09am Alanine Aminotransferase (ALT/SGPT) 11 IU/L 0-55 09/29/2017 6:00am 08/2017 7:09am Total Protein 6.1 g/dL L 6.5-8.1 09/29/2017 6:00am 09/29/2017 7:09am Albumin 3.2 g/dL L 3.5-5.0 09/29/2017 6:00am 09/29/2017 7:09am Globulin 2.9 g/dL 2.3-3.5 09/29/2017 6:00am 09/29/2017 7:09am Albumin/Globulin Ratio 1.1 0.8-2.0 09/29/2017 6:00am 09/29/2017 7: 09am Alkaline Phosphatase 40 IU/L 40-150 09/29/2017 6:00am 09/29/2017 7: 09am Triglycerides Level 120 MG/DL 0-149 09/29/2017 6:00am 09/29/2017 7: 09am Cholesterol Level 152 MD/DL 0-199 09/29/2017 6:00am 09/29/2017 7:09am Less than 200 mg/dL Low Risk 201 - 239 mg/dL Borderline Risk 240 mg/dl and greater High Risk LDL Cholesterol 79 MG/DL 60-130 09/29/2017 6:00am 09/29/2017 7:09am HDL Cholesterol 49 MG/DL 40-60 09/29/2017 6:00am 09/29/2017 7:09am Cholesterol/HDL Ratio 3.1 3.0-3.6 09/29/2017 6:00am 09/29/2017 7: 09am Creatine Kinase 46 IU/L 29-168 09/29/2017 3:45pm 09/29/2017 4:12pm Creatine Kinase MB 1.00 ng/mL 0-5.0 09/29/2017 3:45pm 09/29/2017 4: 19pm Troponin I < 0.001 ng/mL 0-0.300 09/29/2017 3:45pm 09/29/2017 4:19pm Procedures Procedure Status Date Provider(s) Computed tomography of brain without radiopaque contrast Active 09/28/17 DENI RUDD MD Magnetic resonance imaging of brain without contrast Active 09/29/17 MADIHA GROVER M.D. Encounters Encounter Location Arrival/Admit Date Discharge/Depart Date Attending Provider Discharged Inpatient (obs) [facility] 09/28/17 8:59pm 11/13 11:52am HERMELINDA DAVID MD
--- NOTE | 2017-10-18 16:14 | Diagnostic Imaging Report ---
Examination: CT BRAIN WITHOUT CONTRAST History:Migraines. Comparison studies:Brain MRI performed September 29, [address] performed September 28, 2017. Technique: Axial images were obtained from the skull base to the vertex. Coronal and sagittal images reconstructed from the axial data. Intravenous contrast: None Findings: Scalp: No abnormalities. Bones: No fractures, blastic or lytic lesions. Brain sulci: Appropriate for age. Ventricles: Normal in size and configuration. No hydrocephalus. Extra-axial space: No abnormalities. Parenchyma: There are subtle patchy areas of hypoattenuation in the periventricular and subcortical white matter, nonspecific. No masses, hemorrhage, or acute or chronic cortical based vascular insults. Sellar/suprasellar region: No abnormalities. Craniocervical junction: Patent foramen magnum. No Chiari one malformation. Incidental findings: None. Impression: 1. No new or acute intracranial abnormality. No change from prior brain MRI and head CT performed September 29 and September 28, 2017, respectively. 2. Unchanged nonspecific areas of hypoattenuation in the supratentorial white matter, which could be related to migraines or microvascular ischemic change. Signed by: Dr. Colleen Hdz M.D. on 10/18/2017 4:10 PM
[2017-10-18] MEDS ORDERED: DIHYDROERGOTAMINE MESYLATE 1 MG/ML AMP IM ONE (16:15)
[2017-10-18 16:27] LABS: BASOPHILS # (AUTO) 0.1 (0.0-0.1); BASOPHILS % 0.7 % (0.0-1.0); EOSINOPHILS # (AUTO) 0.1 (0.0-0.4); EOSINOPHILS % 0.9 % (0.0-6.0); HEMATOCRIT 39.5 % (34.2-44.1); HEMOGLOBIN 13.2 g/dL (12.0-16.0); LYMPHOCYTES # (AUTO) 2.5 (1.0-3.2); LYMPHOCYTES % 29.1 % (18.0-39.1); MEAN CORPUSCULAR HEMOGLOBIN 26.9 pg (28-32); MEAN CORPUSCULAR HGB CONC 33.4 g/dL (31-35); MEAN CORPUSCULAR VOLUME 80.6 fL (81-99); MONOCYTES # (AUTO) 0.5 (0.2-0.8); MONOCYTES % 5.9 % (4.4-11.3); NEUTROPHILS # (AUTO) 5.4 (2.1-6.9); NEUTROPHILS % 62.9 % (38.7-80.0); PLATELET COUNT 319 x10e3/uL (140-360); RED CELL DISTRIBUTION WIDTH 13.3 % (11.7-14.4)
[2017-10-18 16:36] LABS: CLARITY,URINE HAZY (CLEAR); COLOR,URINE YELLOW (YELLOW); LEUKOCYTE ESTERASE ,URINE NEGATIVE (NEGATIVE); NITRITE,URINE NEGATIVE (NEGATIVE); PROTEIN,URINE DIPSTICK NEGATIVE (NEGATIVE)
[2017-10-18 16:37] LABS: BILIRUBIN,URINE NEGATIVE (NEGATIVE); KETONES,URINE NEGATIVE (NEGATIVE); URINE UROBILINOGEN 0.2 mg/dL (0.2 - 1)
[2017-10-18 16:41] LABS: ALANINE AMINOTRANSFERASE 9 IU/L (0-55); ALBUMIN 3.9 g/dL (3.5-5.0); ALBUMIN/GLOBULIN RATIO 1.3 (0.8-2.0); ALKALINE PHOSPHATASE 40 IU/L (40-150); ANION GAP 13.2 mmol/L (8-16); BLOOD UREA NITROGEN 19 mg/dL (7-26); BUN/CREATININE RATIO 23 (6-25); CALCIUM 9.9 mg/dL (8.4-10.2); CARBON DIOXIDE 29 mmol/L (22-29); CHLORIDE 107 mmol/L (98-107); CREATINE KINASE 32 IU/L (29-168); CREATININE, SERUM 0.81 mg/dL (0.57-1.11); EST GLOMERULAR FILTRATION RATE > 60 ML/MIN (60-); GLUCOSE 135 mg/dL (74-118); POTASSIUM 4.2 mmol/L (3.5-5.1); SODIUM 145 mmol/L (136-145)
[2017-10-18 16:52] LABS: EPITHELIAL CELLS,URINE MANY /LPF
[2017-10-18 16:53] LABS: BACTERIA,URINE MODERATE /HPF; RBC,URINE 0-5 /HPF (0-5)
[2017-10-18 17:01] LABS: THYROID STIMULATING HORMONE 1.149 uIU/mL (0.350-4.940)
[2017-10-18] MEDS ORDERED: DIHYDROERGOTAMINE MESYLATE 1 MG/ML AMP ONE ×2 (17:08→17:09)
[2017-10-18] MEDS ORDERED: SODIUM CHLORIDE 0.9% 1000ML 1,000 ML IV STA (18:51)
[2017-10-18] MEDS ORDERED: DIPHENHYDRAMINE HCL INJ 50 MG/ML VIAL IV ONE (19:00)
[2017-10-18] MEDS ORDERED: METOCLOPRAMIDE HCL 10 MG/2ML VIAL IV ONE (19:00)
[2017-10-18] MEDS ORDERED: KETOROLAC TROMETHAMINE 30 MG/ML VIAL IV ONE (19:00)
[2017-10-18 21:32] VITALS: BP 137/79
== END 2017-10-18 21:33 | disposition home or self-care (01) ==
LOC: ER 14:15
DX: G43.909 Migraine, unspecified, not intractable, without status migrainosus (principal); I10 Essential (primary) hypertension; F32.9 Major depressive disorder, single episode, unspecified; Z85.528 Personal history of other malignant neoplasm of kidney; Z86.73 Personal history of transient ischemic attack (TIA), and cerebral infarction without residual deficits
CPT/HCPCS: 36415; 70450; 80053; 81001; 82550; 82553; 84443; 84484; 85025; 87086; 96372; 96374; 96375; 99284; J1110; J1200; J1885; J2765; J7030

== ENCOUNTER → 2017-12-05 | Day surgery (SDC) | payer OTHER ==
[2017-12-04 12:05] LABS: BASOPHILS % 0.5 % (0.0-1.0); EOSINOPHILS # (AUTO) 0.1 (0.0-0.4); EOSINOPHILS % 1.2 % (0.0-6.0); HEMATOCRIT 37.4 % (34.2-44.1); HEMOGLOBIN 12.5 g/dL (12.0-16.0); LYMPHOCYTES # (AUTO) 1.3 (1.0-3.2); LYMPHOCYTES % 19.9 % (18.0-39.1); MEAN CORPUSCULAR HGB CONC 33.4 g/dL (31-35); MEAN CORPUSCULAR VOLUME 80.8 fL (81-99); MONOCYTES # (AUTO) 0.4 (0.2-0.8); MONOCYTES % 6.2 % (4.4-11.3); NEUTROPHILS # (AUTO) 4.6 (2.1-6.9); NEUTROPHILS % 71.9 % (38.7-80.0); PLATELET COUNT 239 x10e3/uL (140-360); RED BLOOD COUNT 4.63 x10e6/uL (3.6-5.1); RED CELL DISTRIBUTION WIDTH 13.7 % (11.7-14.4)
[2017-12-04 12:14] LABS: INR 0.97; PROTHROMBIN TIME 12.1 seconds (11.9-14.5)
[2017-12-04 12:24] LABS: ALANINE AMINOTRANSFERASE 12 IU/L (0-55); ALBUMIN 3.3 g/dL (3.5-5.0); ALBUMIN/GLOBULIN RATIO 1.2 (0.8-2.0); ALKALINE PHOSPHATASE 37 IU/L (40-150); BLOOD UREA NITROGEN 15 mg/dL (7-26); BUN/CREATININE RATIO 18 (6-25); CALCIUM 9.1 mg/dL (8.4-10.2); CARBON DIOXIDE 26 mmol/L (22-29); CHLORIDE 108 mmol/L (98-107); CHOL/HDL RATIO 2.8 (3.0-3.6); CHOLESTEROL 155 MD/DL (0-199); CREATININE, SERUM 0.83 mg/dL (0.57-1.11); EST GLOMERULAR FILTRATION RATE > 60 ML/MIN (60-); GLUCOSE 176 mg/dL (74-118); HDL CHOLESTEROL 55 MG/DL (40-60); LDL CHOLESTEROL 70 MG/DL (60-130); SODIUM 141 mmol/L (136-145); TRIGLYCERIDES 149 MG/DL (0-149)
[2017-12-05] VITALS (11 sets, daily range): BP systolic 104–128; BP diastolic 69–84
[~2017-12-05] VITALS: Ht 170.2 cm; Wt 81.2 kg
[~2017-12-05] MED LIST changes: +ADENOSINE 3MG/1ML 30ML VIAL ONE; +ALPRAZOLAM 0.5 MG TAB ONE; +ALPRAZOLAM0.5 MG PO; +DIPHENHYDRAMINE HCL 25 MG CAP ONE; +FENTANYL CITRATE/PF 100MCG/2 ML INJ ONE; +HEPARIN SOD (PORCINE) 1000 UNIT/ML 30ML ONE; +HEPARIN SOD/SOD CHLORIDE 2,000 ML ONE; +IOPAMIDOL 370 MG/ML 200 ML INFUS..BTL INJ ONE; +LIDOCAINE HCL 2% LOCAL 20 ML VIAL ONE; +MIDAZOLAM HCL 2 MG/2 ML VIAL ONE; +NITROGLYCERIN/D5W 200 MCG/ML 250 ML ONE; +SODIUM CHLORIDE 0.9% 1000ML 1,000 ML ONE; +SODIUM CHLORIDE 0.9% 50ML 50 ML ONE; +VERAPAMIL HCL 2.5 MG/ML 2 ML VIAL ONE
--- NOTE | 2017-12-05 15:59 | Operative Report ---
DATE OF PROCEDURE: December 05, 2017 PROCEDURE: Cardiac catheterization. INDICATIONS: Chest pain, positive stress test. PRE-SEDATION ASSESSMENT: Medical history, social history and previous experience with anesthesia was reviewed and documented in the preoperative medical records. Results of the diagnostic studies reviewed. Planned choice of anesthesia, risks, complications, benefits, and alternatives discussed. The patient deemed an appropriate candidate for planned choice of anesthesia. CONSENT: The benefits, risks, complications, and alternatives to the procedure were discussed with the patient, and informed consent was obtained from the patient or their surrogate. MEDICATIONS: Please see nursing notes for medications administered during the procedure. PROCEDURE: The patient was brought to the cardiac catheterization laboratory in the fasting state. Right wrist was prepped and draped in a sterile fashion. One percent lidocaine was used to infiltrate the right wrist over the right radial artery. A 5-[place] sheath was placed in the right radial artery using the Seldinger technique. Coronary angiography was performed using a Yanely preformed catheter to engage both the RCA and the LCA. Multiple orthogonal views were obtained of each coronary artery. All catheters were removed over a guidewire. After review of the coronary angiography findings, decision was made to perform FFR of OM-1 to assess if the intermediate lesion in OM-1 is flow limiting. The 5-[place] radial sheath was exchanged for a 6-[place] sheath for the FFR and possible intervention of OM-1. A 6-[place] XP 3.5 guide catheter was used to engage the left coronary artery. IV and IC heparin boluses were used to achieve ACT near 300 seconds. The Transpera FFR guidewire was used to cross the lesion. IFR followed by the FFR was performed using IV adenosine. IFR was 0.98 and FFR at maximum hyperemia was 0.96. The patient tolerated the procedure well without any complications. All catheters were removed over a guidewire. The access site was closed using a TR band. Estimated blood loss approximately 20 mL. FINDINGS 1. Left main: Large caliber and normal. 2. LAD: Large vessel. Does not quite reach the apex. One large diagonal. Calcifications and extensive plaquing without any significant stenotic lesions. 3. Left circumflex: Large nondominant vessel. One large OM branch. There is a 50% lesion of OM-1. 4. RCA: Very large dominant RCA. Large RPDA and very large RPL system distally. There is extensive calcification and luminal irregularities within the RCA without any significant stenoses noted. COMPLICATIONS: None. SPECIMENS REMOVED: None. IMPLANTS: None. ESTIMATED BLOOD LOSS: 20 mL. RECOMMENDATIONS 1. Usual post PCI care until the TR band removal. 2. Continue optimal medical therapy and risk factor control. 3. Call the office for follow up in 2 weeks post procedure. Job#: [id number] RAYA
== END | disposition home or self-care (01) ==
LOC: CATH LAB 06:16
PROVIDERS: ATTEND Internal Medicine
DX: I25.118 Atherosclerotic heart disease of native coronary artery with other forms of angina pectoris (principal); R94.39 Abnormal result of other cardiovascular function study; I10 Essential (primary) hypertension; E78.00 Pure hypercholesterolemia, unspecified; E13.8 Other specified diabetes mellitus with unspecified complications; Z01.812 Encounter for preprocedural laboratory examination; Z79.84 Long term (current) use of oral hypoglycemic drugs; Z86.73 Personal history of transient ischemic attack (TIA), and cerebral infarction without residual deficits; Z82.49 Family history of ischemic heart disease and other diseases of the circulatory system
CPT/HCPCS: 36415 ×2; 80053; 80061; 84702; 85025; 85610; 93458; C1887 ×2; J0153; J1644; J2001; J2250; J7030; Q9967; 93454; 93571